=== PATIENT | male | born 1975 ===

== ENCOUNTER 2024-10-10 07:06 | Outpatient (RCR) | payer OTHER, SELFPAY | END 2024-10-18 11:50 | disposition home or self-care (01) | LOC: RPT 07:06 | PROVIDERS: ATTENDING PHYSICIAN General Practice | DX: Z47.1 Aftercare following joint replacement surgery (principal); Z73.6 Limitation of activities due to disability; R26.89 Other abnormalities of gait and mobility; M25.562 Pain in left knee; Z96.652 Presence of left artificial knee joint | CPT/HCPCS: 97110; 97162 ==